=== PATIENT | female | born 1950 | race Caucasian/White ===

== ENCOUNTER → 2016-11-15 | Outpatient (CLI) | payer MEDICARE | END | disposition home or self-care (01) | LOC: CFH 10:42 | PROVIDERS: ATTEND Nurse Practitioner Family | DX: Z12.31 Encounter for screening mammogram for malignant neoplasm of breast (principal) | CPT/HCPCS: G0202 ==

== ENCOUNTER → 2018-02-20 | Outpatient (CLI) | payer MEDICARE | END | disposition home or self-care (01) | LOC: CFH 10:37 | PROVIDERS: ATTEND Nurse Practitioner Family | DX: Z12.31 Encounter for screening mammogram for malignant neoplasm of breast (principal); Z80.3 Family history of malignant neoplasm of breast | CPT/HCPCS: 77063; 77067 ==

== ENCOUNTER → 2019-03-09 | Outpatient (CLI) | payer MEDICARE | END | disposition home or self-care (01) | LOC: CFH 12:22 | PROVIDERS: ATTEND Nurse Practitioner Family | DX: Z12.31 Encounter for screening mammogram for malignant neoplasm of breast (principal); N64.89 Other specified disorders of breast | CPT/HCPCS: 77063; 77067 ==

== ENCOUNTER → 2019-04-30 | Outpatient (CLI) | payer MEDICARE | END | disposition home or self-care (01) | LOC: CFH 13:50 | PROVIDERS: ATTEND Nurse Practitioner Family | DX: R22.42 Localized swelling, mass and lump, left lower limb (principal) ==

== ENCOUNTER → 2020-03-15 | Outpatient (CLI) | payer MEDICARE | END | disposition home or self-care (01) | LOC: CFH 10:30 | PROVIDERS: ATTEND Nurse Practitioner Family | DX: Z12.31 Encounter for screening mammogram for malignant neoplasm of breast (principal) | CPT/HCPCS: 77063; 77067 ==